=== PATIENT | female | born 1950 | race Caucasian/White ===

== ENCOUNTER 2023-10-16 22:41 | Inpatient (IN) | payer MEDICARE ==
[~2023-10-16] VITALS: Ht 152.4 cm; Wt 52.2 kg
[2023-10-16] MEDS ORDERED: ATOR40TA PO (23:25)
[2023-10-16] MEDS ORDERED: POTA10CA43 PO (23:25)
[2023-10-16] MEDS ORDERED: BENA40TA8 PO (23:25)
[2023-10-16] MEDS ORDERED: ASPI81TA31 PO (23:25)
[2023-10-16] MEDS ORDERED: MULT-213 PO (23:25)
[2023-10-16] MEDS ORDERED: CARV12.52 PO (23:25)
[2023-10-16] MEDS ORDERED: LISI10TA29 PO (23:25)
[2023-10-16] MEDS ORDERED: CEphaleXIN 500 MG CAPSULE ONE (23:46)
[2023-10-16] MEDS: CEphaleXIN 500 MG CAPSULE PO SCH (23:48)
[2023-10-16 23:52] LABS: *BILIRUBIN,URIN NEGATIVE (NEGATIVE); *BLOOD, URINE NEGATIVE (NEGATIVE); *CLARITY,URINE CLEAR (CLEAR); *COLOR,URINE YELLOW (YELLOW); *KETONES,URINE NEGATIVE (NEGATIVE); *PROTEIN,URINE NEGATIVE (NEGATIVE); *UROBILINOGEN,URINE 0.2 E.U./dl (NORMAL); LEUKOCYTE ESTERASE ,URINE TRACE (NEGATIVE); NITRITE, URINE POSITIVE (NEGATIVE); PH,URINE 5.5 (5.0-8.0); UGLUCOSE NEGATIVE (NEGATIVE)
[2023-10-17 01:30] LABS: RBC,URINE NONE SEEN /HPF (0-3); SQUAMOUS EPITHELIAL CELL,UR MODERATE /HPF (NONE SEEN)
[2023-10-17 01:31] LABS: BACTERIA,URINE MANY /HPF (NONE SEEN)
[2023-10-17 01:50] VITALS: BP 164/88; TEMP 97.5; O2SAT 95
[2023-10-17] MEDS: BLOOD SUGAR DIAGNOSTIC 1 EACH STRIP VI ONE (02:45)
[2023-10-17] MEDS ORDERED: MAG HYDROX/AL HYDROX/SIMETH 30 ML LIQUID UDC PO PRN (02:45)
[2023-10-17] MEDS ORDERED: MAGNESIUM HYDROXIDE 30 ML LIQUID UDC PO PRN (02:45)
[2023-10-17] MEDS ORDERED: TEMAZEPAM 7.5 MG CAPSULE PO PRN (02:45)
[2023-10-17 07:57] VITALS: BP 110/61; TEMP 98; O2SAT 100
[2023-10-17] MEDS: DIVALPROEX 125 MG TABLET.DR PO SCH (12:57)
[2023-10-17 16:08] VITALS: BP 101/59; TEMP 98; O2SAT 98
[2023-10-17] MEDS: CARVEDILOL 12.5 MG TABLET PO SCH (17:00)
[2023-10-17 20:00] VITALS: BP 138/66; TEMP 97.8; O2SAT 93
[2023-10-17] MEDS: QUETIAPINE FUMARATE 25 MG TABLET PO SCH (21:14)
[2023-10-17] MEDS: ATORVASTATIN 40 MG TABLET PO SCH (21:14)
[2023-10-18 08:00] VITALS: BP 104/68; TEMP 97.7; O2SAT 95
[2023-10-18] MEDS ORDERED: Medication Not On Formulary EA (Multivitamins W-Minerals (Multivitamin With Minerals) 1 PO SCH (09:00)
[2023-10-18] MEDS: ASPIRIN 81 MG TAB.CHEW PO SCH (09:26)
[2023-10-18] MEDS: MULTIVIT, IRON, MIN NO. 8, FA TABLET PO SCH (09:26)
[2023-10-18] MEDS: LISINOPRIL 10 MG TABLET PO SCH (09:29)
[2023-10-18 16:40] VITALS: BP 94/56; TEMP 97.8; O2SAT 95
[2023-10-18 20:10] VITALS: BP 91/58; TEMP 98; O2SAT 96
[2023-10-18] MEDS: ACETAMINOPHEN 325 MG TABLET PO PRN (22:17)
[2023-10-19 08:50] VITALS: BP 114/72; TEMP 98.1; O2SAT 98
[2023-10-19 16:13] VITALS: BP 120/59; TEMP 98.1; O2SAT 98
[2023-10-19 19:48] VITALS: BP 118/64; TEMP 97.9; O2SAT 96
[2023-10-20 08:00] VITALS: BP 113/91; TEMP 97.8; O2SAT 94
[2023-10-20 16:00] VITALS: BP 121/66; TEMP 97.8; O2SAT 94
[2023-10-20 19:56] VITALS: BP 111/70; TEMP 98; O2SAT 95
[2023-10-21 09:15] VITALS: BP 143/70; TEMP 98; O2SAT 98
[2023-10-21] MEDS: CLONAZEPAM 0.5 MG TABLET PO PRN (14:39)
[2023-10-21 15:20] VITALS: BP 99/80; TEMP 98; O2SAT 98
[2023-10-21 19:55] VITALS: BP 145/84; TEMP 98.1; O2SAT 94
[2023-10-22 08:16] VITALS: BP 131/74; TEMP 98; O2SAT 99
[2023-10-22 16:13] VITALS: BP 131/74; TEMP 98; O2SAT 97
[2023-10-22 20:00] VITALS: BP 118/91; TEMP 98.1; O2SAT 97
[2023-10-23 09:38] VITALS: BP 100/49; TEMP 98; O2SAT 90
[2023-10-23 15:48] VITALS: BP 136/91; TEMP 98; O2SAT 91
[2023-10-23 20:00] VITALS: BP 132/72; TEMP 97.4; O2SAT 95
[2023-10-24 09:04] VITALS: BP 127/73; TEMP 98; O2SAT 98
[2023-10-24 16:02] VITALS: BP 109/46; TEMP 98; O2SAT 96
[2023-10-24 20:00] VITALS: BP 116/64; TEMP 97.2; O2SAT 97
[2023-10-25 07:57] VITALS: BP 120/56; TEMP 97.9; O2SAT 98
[2023-10-25 17:03] VITALS: BP 143/60; TEMP 97.9; O2SAT 98
[2023-10-25 20:00] VITALS: BP 124/54; TEMP 98.1; O2SAT 95
[2023-10-25] MEDS: DIVALPROEX 250 MG TABLET.DR PO SCH (21:01)
[2023-10-25] MEDS: QUETIAPINE FUMARATE 25 MG TABLET PO SCH (21:02)
[2023-10-26 08:49] VITALS: BP 133/71; TEMP 98.1; O2SAT 98
[2023-10-26 15:56] VITALS: BP 135/53; TEMP 98.5; O2SAT 98
[2023-10-26 20:02] VITALS: BP 130/60; TEMP 98.1; O2SAT 96
[2023-10-27 08:17] VITALS: BP 139/55; TEMP 98.3; O2SAT 98
[2023-10-27 16:04] VITALS: BP 166/66; TEMP 98.2; O2SAT 98
[2023-10-27 19:59] VITALS: BP 107/51; TEMP 98; O2SAT 96
[2023-10-28 09:40] VITALS: BP 143/99; TEMP 98.4; O2SAT 98
[2023-10-28 15:43] VITALS: BP 153/87; TEMP 98.2; O2SAT 99
[2023-10-28 19:47] VITALS: BP 145/61; TEMP 98; O2SAT 95
[2023-10-29 07:44] VITALS: BP 139/76; TEMP 98; O2SAT 98
[2023-10-29 07:44] LABS: CALCIUM 9.2 mg/dL (8.5-10.1); CREATININE 0.8 mg/dL (0.6-1.3); MAGNESIUM 2.4 mg/dL (1.8-2.4); POTASSIUM 5.2 mmol/L (3.5-5.1)
[2023-10-29 09:23] VITALS: BP 139/76
== END 2023-10-29 14:15 | DRG 885 ==
LOC: ER 22:44 → GPS 23:15
PROVIDERS: ADMIT Psychiatry & Neurology Psychiatry; ATTEND Nurse Practitioner Acute Care
DX: F39 Unspecified mood [affective] disorder (principal); N39.0 Urinary tract infection, site not specified; I25.10 Atherosclerotic heart disease of native coronary artery without angina pectoris; Z95.1 Presence of aortocoronary bypass graft; K21.9 Gastro-esophageal reflux disease without esophagitis; Z79.82 Long term (current) use of aspirin; Z79.899 Other long term (current) drug therapy; E78.5 Hyperlipidemia, unspecified; I10 Essential (primary) hypertension; I73.9 Peripheral vascular disease, unspecified; G89.29 Other chronic pain; M79.671 Pain in right foot
CPT/HCPCS: 36415; 83735; J3490